=== PATIENT | female | born 1970 | race Caucasian/White ===

== ENCOUNTER 2021-11-23 06:22 | Emergency (ER) | payer OTHER ==
[~2021-11-23] VITALS: Ht 175.3 cm; Wt 97.0 kg
[2021-11-23] MEDS ORDERED: LISINOPRIL20 MG PO (06:34)
== END 2021-11-23 07:40 | disposition home or self-care (01) ==
LOC: ED 06:22
DX: I10 Essential (primary) hypertension (principal); R20.2 Paresthesia of skin
CPT/HCPCS: 36415; 70450; 80048; 85025